=== PATIENT | female | born 1990 | race Caucasian/White ===

== ENCOUNTER 2016-12-15 16:10 | Emergency (ER) | payer MEDICAID, OTHER ==
[~2016-12-15 16:10] MED LIST: ACET65TA OR; AVOID; CIPR500T4 OR; COLA100C2 OR; MILKSUS OR; MIRALEX PO; PERC5TAB8 OR; PERC7.5T8 OR; SENO8.6T5 OR; VICO5TAB; ZOVI5OIN TOP; [UNRECOGNIZED DRUG - OTHER]; [UNRECOGNIZED DRUG - OTHER]
[2016-12-15] MEDS ORDERED: ALBUTEROL 90 MCG/ACT 8GM HFA INHALER As Ordered ONE (17:34)
[2016-12-15] MEDS ORDERED: predniSONE 20 MG TAB As Ordered ONE (17:35)
[2016-12-15] MEDS ORDERED: AZITHROMYCIN 250 MG TAB As Ordered ONE (17:35)
--- NOTE | 2016-12-15 17:53 | EDDOCDS ---
Nurse's Notes [facility] Name: Asmita Santos Age: 26 yrs Sex: Female : 1990 Arrival Date: 12/15/2016 Time: 16:10 Bed PD Private MD: Diagnosis: Acute bronchitis Presentation: 12/15 16:22 Presenting complaint: Patient states: "achy", coughing and sneezing x2 days. Adult ttb Sepsis Screening: The patient does not have new or worsening altered mentation. Patient's respiratory rate is less than 22. Systolic blood pressure is greater than 100. Patient has a qSOFA score of 0- Negative Sepsis Screen. Suicide/Homicide risk assessment- the patient denies having any suicidal and/or homicidal ideations and does not present with any other emotional, behavioral or mental health complaints. Status: Patient is not a director patient financial services or dependent. Transition of care: patient was not received from another setting of care. 16:22 Acuity: NAV Level 4 ttb 16:22 Method Of Arrival: Walkin/Carried/Asstd ttb Triage Assessment: 16:23 General: Appears in no apparent distress, well nourished, well groomed, Behavior is ttb appropriate for age, cooperative, pleasant. Pain: Location: body aches 8/10. HIV screening NA for this visit Offered previously. Neurological: Level of Consciousness is awake, alert. Cardiovascular: Chest pain is denied. Respiratory: Airway is patent Reports cough that is Denies shortness of breath. Derm: Skin is normal. 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 albuterol sulfate 90 mcg/actuation Inhl aepb (Last dose: Unknown) 2. Celexa 10 mg Oral tab 1 tab once daily (Last dose: 12/15/2016 08:00) - PMHx: Asthma; - PSHx: Appendectomy; Cholecystectomy; Tubal ligation; - Social history: Smoking status: Patient uses tobacco products, current every day smoker. Patient uses alcohol occasionally. Patient/guardian denies using street drugs, No barriers to communication noted, The patient speaks fluent Austrian, Speaks appropriately for age. - Family history: Not pertinent. - : The pt / caregiver states he / she is not on anticoagulants. Home medication list is obtained from the patient. - Exposure Risk Screening:: None identified. Screenin:48 Screening information is obtained from the patient. Fall risk: No risks identified. ms18 Assistance ADL's: requires no assistance with activities of daily living. Abuse/DV Screen: The patient / caregiver reports he/she is: not in a situation that causes fear, pain or injury. Nutritional screening: No deficits noted. Advance Directives: There is no living will. home support is adequate. Assessment: 17:48 General: Appears in no apparent distress, comfortable, obese, Behavior is appropriate ms18 for age, cooperative. Pain: Location: chest Pain currently is 4 out of 10 on a pain scale. Neurological: Level of Consciousness is awake, alert, obeys commands, Oriented to person, place, time. Respiratory: Airway is patent Respiratory effort is even, unlabored. Derm: Skin is pink, warm & dry. Vital Signs: 16:11 BP 152 / 88; Pulse 114; Resp 18; Temp 99.2(O); Pulse Ox 99% ; Weight 96.16 kg (M); lr2 Height 5 ft. 4 in. (162.56 cm) (R); Pain 0/10; 17:49 BP 140 / 66; Pulse 92; Resp 18; Temp 99.9(TE); Pulse Ox 98% on R/A; Pain 4/10; ar3 16:11 Body Mass Index 36.39 (96.16 kg, 162.56 cm) lr2 Vitals: 16:11 Log In Time: December 15, 2016 at 16:10. lr2 ED Course: 16:11 Patient visited by Joselyn Narvaez. lr2 16:11 Patient moved to Waiting lr2 16:11 Patient moved to Pre RCE lr2 16:22 Triage Initiated ttb 16:42 Patient moved to Triage 2 ms18 16:49 -Influenza A&B Rapid Antigen - Nose Sent. mlb1 17:06 [facility]adimir Bennett [facility] cc10 17:06 Sami Alanis MD is Attending Physician. cc10 17:20 Patient visited by Bladimir eBnnett PA-C. cc10 17:20 Patient visited by Bladimir Bennett PA-C. cc10 17:32 Patient moved to PD2 / mlb1 17:48 The patient / caregiver is instructed regarding the plan of care and ED course. Patient ms18 has correct armband on for positive identification. Property sent home with patient. :Personal belongings accompany Pt. 17:48 No IV's were initiated during this patient's visit. No procedures done that require ms18 assistance. 17:49 Patient visited by Gayathri Clark PCA. ar3 Administered Medications: 17:38 Drug: Ventolin 2 puffs [Ventolin HFA 90 mcg/actuation aerosol inhaler (2 puffs)] Route: mlb1 Inhalation; 17:38 Drug: predniSONE 40 mg [prednisone 20 mg tablet (2 tabs)] Route: PO; mlb1 17:38 Drug: azithromycin 500 mg [azithromycin 250 mg tablet (2 tabs)] Route: PO; mlb1 Order Results: Lab Order: -Influenza A&B Rapid Antigen - Nose; SPEC'M 12/15/16 16:46 Test: INFLUENZA A RAPID SCR by ICA; Value: INFLUENZA A RESULTS NEGATIVE; Status: F Test: INFLUENZA A RAPID SCR by ICA; Value: Comments:; Status: F Test: INFLUENZA B RAPID SCR by ICA; Value: INFLUENZA B RESULTS NEGATIVE; Status: F Test: INFLUENZA B RAPID SCR by ICA; Value: Comments:; Status: F Test Note: ; The Influenza test is a direct rapid immunoassay for the qualitative detection of Influenza viral antigen. Cell culture (Viral Culture) testing should be considered to confirm NEGATIVE results and to assist in detecting other viruses that can provide similar clinical symptoms. Please contact the lab within 24 hours ([phone]) if confirmatory testing is desired. Outcome: 17:30 Discharge ordered by Provider. cc10 17:48 Discharge Assessment: Patient awake, alert and oriented x 3. No cognitive and/or ms18 functional deficits noted. Patient verbalized understanding of disposition instructions. patient administered narcotics - no. The following High Risk Discharge criteria are identified: None. Discharged to home ambulatory. Condition: good Condition: stable Condition: improved. Discharge instructions given to patient, Instructed on discharge instructions, follow up and referral plans. medication usage, Demonstrated understanding of instructions, medications, Pt was receptive of discharge instructions/ teaching. Prescriptions given X 4. No special radiology studies were completed. 17:51 Patient left the ED. ms18 Signatures: John Cline RN RN mlb1 Gayathri Clark PCA JOURNEYMAN PATTERNMAKER ar3 Alessandra Zhou RN RN ttb Bladimir Bennett, KING PASharmaineC cc10 Carla RichmondRN RN ms18 Joselyn Narvaez lr2 MTDD
--- NOTE | 2016-12-15 17:53 | EDDOCDS ---
Physician Documentation [facility] Name: Asmita Santos Age: 26 yrs Sex: Female : 1990 Arrival Date: 12/15/2016 Time: 16:10 Bed PD Private MD: Disposition: 12/15/16 17:30 Discharged to Home/Self Care. Impression: Acute bronchitis. - Condition is Stable. - Discharge Instructions: Acute Bronchitis. - Prescriptions for Zithromax Z- Ari 250 mg Oral Tablet - take 1 tablet by ORAL route as directed for 4 days; 4 tablet. Prednisone 20 mg Oral Tablet - take 2 tablets by ORAL route once daily for 4 days; 8 tablet. benzonatate 200 mg Oral Capsule - take 1 capsule by ORAL route 3 times per day As needed; 30 capsule. Albuterol Sulfate 90 mcg/actuation Inhalation HFA Aerosol Inhaler - inhale 2 puff by INHALATION route every 4 hours As needed; 1 Inhaler. - Medication Reconciliation, Local Pharmacy Hours form. - Follow up: Private Physician; When: Call to arrange an appointment; Reason: Recheck today's complaints, Continuance of care. - Problem is new. - Symptoms have improved. Historical: - Allergies: PENICILLINS; - Home Meds: 1. albuterol sulfate 90 mcg/actuation Inhl aepb (Last dose: Unknown) 2. Celexa 10 mg Oral tab 1 tab once daily (Last dose: 12/15/2016 08:00) - PMHx: Asthma; - PSHx: Appendectomy; Cholecystectomy; Tubal ligation; - Social history: Smoking status: Patient uses tobacco products, current every day smoker. Patient uses alcohol occasionally. Patient/guardian denies using street drugs, No barriers to communication noted, The patient speaks fluent Portuguese, Speaks appropriately for age. - Family history: Not pertinent. - : The pt / caregiver states he / she is not on anticoagulants. Home medication list is obtained from the patient. - Exposure Risk Screening:: None identified. 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 4 in. (162.56 cm) (R); Pain 0/10; 17:49 BP 140 / 66; Pulse 92; Resp 18; Temp 99.9(TE); Pulse Ox 98% on R/A; Pain 4/10; ar3 16:11 Body Mass Index 36.39 (96.16 kg, 162.56 cm) lr2 MDM: 16:25 Obtain sample by nasopharyngeal swab ordered. ke 16:26 -Influenza A&B Rapid Antigen - Nose Ordered. EDMS 17:29 Call Respiratory ordered. cc10 17:29 MDI teaching with Spacer ordered. cc10 17:29 Ventolin Inhaler 2 puffs Inhalation once ordered. cc10 17:29 predniSONE 40 mg PO once; administer with food or milk ordered. cc10 17:29 azithromycin 500 mg PO once ordered. cc10 17:31 Call Respiratory complete. ttb Administered Medications: 17:38 Drug: Ventolin 2 puffs [Ventolin HFA 90 mcg/actuation aerosol inhaler (2 puffs)] Route: mlb1 Inhalation; 17:38 Drug: predniSONE 40 mg [prednisone 20 mg tablet (2 tabs)] Route: PO; mlb1 17:38 Drug: azithromycin 500 mg [azithromycin 250 mg tablet (2 tabs)] Route: PO; mlb1 Signatures: Dispatcher [employer] EDMS Fercho Bolivar, ADMISSIONS CLINICIAN ADMISSIONS CLINICIAN Alessandra Chavarria RN RN Bladimir De La O, PA-C PA-C ccCarla Hamilton RN RN ms18 John Cline RN mlb1 MTDD
--- NOTE | 2016-12-17 18:53 | EDDOCDS ---
Nurse's Notes [facility] Name: Asmita Santos Age: 26 yrs Sex: Female : 1990 Arrival Date: 12/15/2016 Time: 16:10 Bed PD Private MD: Diagnosis: Acute bronchitis Presentation: 12/15 16:22 Presenting complaint: Patient states: "achy", coughing and sneezing x2 days. Adult ttb Sepsis Screening: The patient does not have new or worsening altered mentation. Patient's respiratory rate is less than 22. Systolic blood pressure is greater than 100. Patient has a qSOFA score of 0- Negative Sepsis Screen. Suicide/Homicide risk assessment- the patient denies having any suicidal and/or homicidal ideations and does not present with any other emotional, behavioral or mental health complaints. Status: Patient is not a shop service technician or dependent. Transition of care: patient was not received from another setting of care. 16:22 Acuity: NAV Level 4 ttb 16:22 Method Of Arrival: Walkin/Carried/Asstd ttb Triage Assessment: 16:23 General: Appears in no apparent distress, well nourished, well groomed, Behavior is ttb appropriate for age, cooperative, pleasant. Pain: Location: body aches 8/10. HIV screening NA for this visit Offered previously. Neurological: Level of Consciousness is awake, alert. Cardiovascular: Chest pain is denied. Respiratory: Airway is patent Reports cough that is Denies shortness of breath. Derm: Skin is normal. 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 albuterol sulfate 90 mcg/actuation Inhl aepb (Last dose: Unknown) 2. Celexa 10 mg Oral tab 1 tab once daily (Last dose: 12/15/2016 08:00) - PMHx: Asthma; - PSHx: Appendectomy; Cholecystectomy; Tubal ligation; - Social history: Smoking status: Patient uses tobacco products, current every day smoker. Patient uses alcohol occasionally. Patient/guardian denies using street drugs, No barriers to communication noted, The patient speaks fluent Cuban, Speaks appropriately for age. - Family history: Not pertinent. - : The pt / caregiver states he / she is not on anticoagulants. Home medication list is obtained from the patient. - Exposure Risk Screening:: None identified. Screenin:48 Screening information is obtained from the patient. Fall risk: No risks identified. ms18 Assistance ADL's: requires no assistance with activities of daily living. Abuse/DV Screen: The patient / caregiver reports he/she is: not in a situation that causes fear, pain or injury. Nutritional screening: No deficits noted. Advance Directives: There is no living will. home support is adequate. Assessment: 17:48 General: Appears in no apparent distress, comfortable, obese, Behavior is appropriate ms18 for age, cooperative. Pain: Location: chest Pain currently is 4 out of 10 on a pain scale. Neurological: Level of Consciousness is awake, alert, obeys commands, Oriented to person, place, time. Respiratory: Airway is patent Respiratory effort is even, unlabored. Derm: Skin is pink, warm & dry. Vital Signs: 16:11 BP 152 / 88; Pulse 114; Resp 18; Temp 99.2(O); Pulse Ox 99% ; Weight 96.16 kg (M); lr2 Height 5 ft. 4 in. (162.56 cm) (R); Pain 0/10; 17:49 BP 140 / 66; Pulse 92; Resp 18; Temp 99.9(TE); Pulse Ox 98% on R/A; Pain 4/10; ar3 16:11 Body Mass Index 36.39 (96.16 kg, 162.56 cm) lr2 Vitals: 16:11 Log In Time: December 15, 2016 at 16:10. lr2 ED Course: 16:11 Patient visited by Joselyn Narvaez. lr2 16:11 Patient moved to Waiting lr2 16:11 Patient moved to Pre RCE lr2 16:22 Triage Initiated ttb 16:42 Patient moved to Triage 2 ms18 16:49 -Influenza A&B Rapid Antigen - Nose Sent. mlb1 17:06 [facility] cc10 17:06 Sami Alanis MD is Attending Physician. cc10 17:20 Patient visited by Bladimir Bennett PA-C. cc10 17:20 Patient visited by Bladimir Bennett PA-C. cc10 17:32 Patient moved to PD2 / mlb1 17:48 The patient / caregiver is instructed regarding the plan of care and ED course. Patient ms18 has correct armband on for positive identification. Property sent home with patient. :Personal belongings accompany Pt. 17:48 No IV's were initiated during this patient's visit. No procedures done that require ms18 assistance. 17:49 Patient visited by Gayathri Clark PCA. ar3 12/16 10:16 T-Sheet-- Draft Copy was scanned into [employer] and attached to record. gb Administered Medications: 12/15 17:38 Drug: Ventolin 2 puffs [Ventolin HFA 90 mcg/actuation aerosol inhaler (2 puffs)] Route: mlb1 Inhalation; 17:38 Drug: predniSONE 40 mg [prednisone 20 mg tablet (2 tabs)] Route: PO; mlb1 17:38 Drug: azithromycin 500 mg [azithromycin 250 mg tablet (2 tabs)] Route: PO; mlb1 Order Results: Lab Order: -Influenza A&B Rapid Antigen - Nose; SPEC'M 12/15/16 16:46 Test: INFLUENZA A RAPID SCR by ICA; Value: INFLUENZA A RESULTS NEGATIVE; Status: F Test: INFLUENZA A RAPID SCR by ICA; Value: Comments:; Status: F Test: INFLUENZA B RAPID SCR by ICA; Value: INFLUENZA B RESULTS NEGATIVE; Status: F Test: INFLUENZA B RAPID SCR by ICA; Value: Comments:; Status: F Test Note: ; The Influenza test is a direct rapid immunoassay for the qualitative detection of Influenza viral antigen. Cell culture (Viral Culture) testing should be considered to confirm NEGATIVE results and to assist in detecting other viruses that can provide similar clinical symptoms. Please contact the lab within 24 hours ([phone]) if confirmatory testing is desired. Outcome: 17:30 Discharge ordered by Provider. cc10 17:48 Discharge Assessment: Patient awake, alert and oriented x 3. No cognitive and/or ms18 functional deficits noted. Patient verbalized understanding of disposition instructions. patient administered narcotics - no. The following High Risk Discharge criteria are identified: None. Discharged to home ambulatory. Condition: good Condition: stable Condition: improved. Discharge instructions given to patient, Instructed on discharge instructions, follow up and referral plans. medication usage, Demonstrated understanding of instructions, medications, Pt was receptive of discharge instructions/ teaching. Prescriptions given X 4. No special radiology studies were completed. 17:51 Patient left the ED. ms18 Signatures: Barnhardt, Cristy, Reg Reg gb John Cline, RN RN mlb1 Gayathri Clark, ROOFING TECHNICIAN ROOFING TECHNICIAN ar3 Alessandra Zhou, RN RN ttb Bladimir Bennett, PASharmaineC PAKaren cc10 Carla Richmond,OLEG RN ms18 Joselyn Narvaez lr2 Chart Complete MTDD
--- NOTE | 2016-12-17 18:53 | EDDOCDS ---
Physician Documentation [facility] Name: Asmita Santos Age: 26 yrs Sex: Female : 1990 Arrival Date: 12/15/2016 Time: 16:10 Bed PD Private MD: Disposition: 12/15/16 17:30 Discharged to Home/Self Care. Impression: Acute bronchitis. - Condition is Stable. - Discharge Instructions: Acute Bronchitis. - Prescriptions for Zithromax Z- Ari 250 mg Oral Tablet - take 1 tablet by ORAL route as directed for 4 days; 4 tablet. Prednisone 20 mg Oral Tablet - take 2 tablets by ORAL route once daily for 4 days; 8 tablet. benzonatate 200 mg Oral Capsule - take 1 capsule by ORAL route 3 times per day As needed; 30 capsule. Albuterol Sulfate 90 mcg/actuation Inhalation HFA Aerosol Inhaler - inhale 2 puff by INHALATION route every 4 hours As needed; 1 Inhaler. - Medication Reconciliation, Local Pharmacy Hours form. - Follow up: Private Physician; When: Call to arrange an appointment; Reason: Recheck today's complaints, Continuance of care. - Problem is new. - Symptoms have improved. Historical: - Allergies: PENICILLINS; - Home Meds: 1. albuterol sulfate 90 mcg/actuation Inhl aepb (Last dose: Unknown) 2. Celexa 10 mg Oral tab 1 tab once daily (Last dose: 12/15/2016 08:00) - PMHx: Asthma; - PSHx: Appendectomy; Cholecystectomy; Tubal ligation; - Social history: Smoking status: Patient uses tobacco products, current every day smoker. Patient uses alcohol occasionally. Patient/guardian denies using street drugs, No barriers to communication noted, The patient speaks fluent Divehi, Speaks appropriately for age. - Family history: Not pertinent. - : The pt / caregiver states he / she is not on anticoagulants. Home medication list is obtained from the patient. - Exposure Risk Screening:: None identified. 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 4 in. (162.56 cm) (R); Pain 0/10; 17:49 BP 140 / 66; Pulse 92; Resp 18; Temp 99.9(TE); Pulse Ox 98% on R/A; Pain 4/10; ar3 16:11 Body Mass Index 36.39 (96.16 kg, 162.56 cm) lr2 MDM: 16:25 Obtain sample by nasopharyngeal swab ordered. ke 16:26 -Influenza A&B Rapid Antigen - Nose Ordered. EDMS 17:29 Call Respiratory ordered. cc10 17:29 MDI teaching with Spacer ordered. cc10 17:29 Ventolin Inhaler 2 puffs Inhalation once ordered. cc10 17:29 predniSONE 40 mg PO once; administer with food or milk ordered. cc10 17:29 azithromycin 500 mg PO once ordered. cc10 17:31 Call Respiratory complete. ttb 12/16 10:16 T-Sheet-- Draft Copy was scanned into [employer] and attached to record. gb Administered Medications: 12/15 17:38 Drug: Ventolin 2 puffs [Ventolin HFA 90 mcg/actuation aerosol inhaler (2 puffs)] Route: mlb1 Inhalation; 17:38 Drug: predniSONE 40 mg [prednisone 20 mg tablet (2 tabs)] Route: PO; mlb1 17:38 Drug: azithromycin 500 mg [azithromycin 250 mg tablet (2 tabs)] Route: PO; mlb1 Signatures: Dispatcher [employer] EDIL Cristy Cantu, Reg Reg gb Fercho Bolivar, FIRE PROTECTION ENGINEER FIRE PROTECTION ENGINEER Alessandra Chavarria RN RN ttb Bladimir Bennett PASharmaineC PAKaren cc10 Carla Richmond RN RN ms18 John Cline RN mlb1 The chart was reviewed and I authenticate all verbal orders and agree with the evaluation and treatment provided.Attachments: 12/16 10:16 T-Sheet-- Draft Copy gb Chart Complete MTDD
--- NOTE | 2016-12-17 18:53 | EDDOCDS ---
Physician Documentation [facility] Name: Asmita Santos Age: 26 yrs Sex: Female : 1990 Arrival Date: 12/15/2016 Time: 16:10 Bed PD Private MD: Disposition: 12/15/16 17:30 Discharged to Home/Self Care. Impression: Acute bronchitis. - Condition is Stable. - Discharge Instructions: Acute Bronchitis. - Prescriptions for Zithromax Z- Ari 250 mg Oral Tablet - take 1 tablet by ORAL route as directed for 4 days; 4 tablet. Prednisone 20 mg Oral Tablet - take 2 tablets by ORAL route once daily for 4 days; 8 tablet. benzonatate 200 mg Oral Capsule - take 1 capsule by ORAL route 3 times per day As needed; 30 capsule. Albuterol Sulfate 90 mcg/actuation Inhalation HFA Aerosol Inhaler - inhale 2 puff by INHALATION route every 4 hours As needed; 1 Inhaler. - Medication Reconciliation, Local Pharmacy Hours form. - Follow up: Private Physician; When: Call to arrange an appointment; Reason: Recheck today's complaints, Continuance of care. - Problem is new. - Symptoms have improved. Historical: - Allergies: PENICILLINS; - Home Meds: 1. albuterol sulfate 90 mcg/actuation Inhl aepb (Last dose: Unknown) 2. Celexa 10 mg Oral tab 1 tab once daily (Last dose: 12/15/2016 08:00) - PMHx: Asthma; - PSHx: Appendectomy; Cholecystectomy; Tubal ligation; - Social history: Smoking status: Patient uses tobacco products, current every day smoker. Patient uses alcohol occasionally. Patient/guardian denies using street drugs, No barriers to communication noted, The patient speaks fluent Bulgarian, Speaks appropriately for age. - Family history: Not pertinent. - : The pt / caregiver states he / she is not on anticoagulants. Home medication list is obtained from the patient. - Exposure Risk Screening:: None identified. 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 4 in. (162.56 cm) (R); Pain 0/10; 17:49 BP 140 / 66; Pulse 92; Resp 18; Temp 99.9(TE); Pulse Ox 98% on R/A; Pain 4/10; ar3 16:11 Body Mass Index 36.39 (96.16 kg, 162.56 cm) lr2 MDM: 16:25 Obtain sample by nasopharyngeal swab ordered. ke 16:26 -Influenza A&B Rapid Antigen - Nose Ordered. EDMS 17:29 Call Respiratory ordered. cc10 17:29 MDI teaching with Spacer ordered. cc10 17:29 Ventolin Inhaler 2 puffs Inhalation once ordered. cc10 17:29 predniSONE 40 mg PO once; administer with food or milk ordered. cc10 17:29 azithromycin 500 mg PO once ordered. cc10 17:31 Call Respiratory complete. ttb 12/16 10:16 T-Sheet-- Draft Copy was scanned into [employer] and attached to record. gb Administered Medications: 12/15 17:38 Drug: Ventolin 2 puffs [Ventolin HFA 90 mcg/actuation aerosol inhaler (2 puffs)] Route: mlb1 Inhalation; 17:38 Drug: predniSONE 40 mg [prednisone 20 mg tablet (2 tabs)] Route: PO; mlb1 17:38 Drug: azithromycin 500 mg [azithromycin 250 mg tablet (2 tabs)] Route: PO; mlb1 Signatures: Dispatcher [employer] EDNE Cristy Cantu, Reg Reg gb Fercho Bolivar, CANS VACUUM TESTER CANS VACUUM TESTER Alessandra Chavarria RN RN ttb Bladimir Bennett PASharmaineC PAKaren cc10 Carla Richmond RN RN ms18 John Cline RN mlb1 The chart was reviewed and I authenticate all verbal orders and agree with the evaluation and treatment provided.Attachments: 12/16 10:16 T-Sheet-- Draft Copy gb Chart Complete MTDD
== END 2016-12-15 17:51 | disposition home or self-care (01) ==
LOC: M ED 16:10
DX: J02.9 Acute pharyngitis, unspecified (principal); J45.909 Unspecified asthma, uncomplicated; Z79.899 Other long term (current) drug therapy; Z83.6 Family history of other diseases of the respiratory system; Z88.0 Allergy status to penicillin; F17.210 Nicotine dependence, cigarettes, uncomplicated

== ENCOUNTER → 2017-06-03 | Outpatient (REF) | payer OTHER | LOC: M LAB REF 17:25 | PROVIDERS: ATTEND Obstetrics & Gynecology | DX: N87.1 Moderate cervical dysplasia (principal) ==

== ENCOUNTER 2017-10-09 11:37 | Emergency (ER) | payer OTHER ==
[~2017-10-09] VITALS: Ht 160 cm; Wt 95.5 kg
[2017-10-09] MEDS ORDERED: COMBAER6 INH (11:44)
[2017-10-09] MEDS ORDERED: IBUP200C10 PO (11:44)
[2017-10-09] MEDS ORDERED: MORPHINE 4 MG/ML 1ML SYRINGE IV ONE (12:15)
[2017-10-09] MEDS ORDERED: NS 1,000 ML IV ONE (12:15)
[2017-10-09 12:41] LABS: BASO # 0.1 10^3/uL (0.0-0.2); BASO % 0.6 % (0.0-1.0); EOS # 0.2 10^3/uL (0.0-0.50); EOS % 1.8 % (0.0-3.0); IMMATURE GRANULOCYTE % 0.3 % (0-0); LYMPH # 3.4 10^3/uL (1.5-6.5); LYMPH % 29.8 % (24.0-44.0); MEAN CORPUSCULAR HEMOGLOBIN 29.2 pg (27.0-33.0); MEAN CORPUSCULAR HGB CONC 34.1 g/dl (32.0-36.5); MEAN CORPUSCULAR VOLUME 85.8 fl (80.0-96.0); MONO # 0.7 10^3/uL (0.0-0.8); MONO % 5.9 % (0.0-5.0); NEUTROPHILS % 61.6 % (36.0-66.0); PLATELET COUNT, AUTOMATED 301 10^3/uL (150-450); RED CELL DISTRIBUTION WIDTH 12.4 % (11.5-14.5); WHITE BLOOD COUNT 11.4 10^3/uL (4.0-10.0)
[2017-10-09 12:52] LABS: CONTROL LINE UCG INT CTR LINE PRESENT
[2017-10-09 13:10] LABS: ALBUMIN 4.2 GM/DL (3.2-5.2); ALBUMIN/GLOBULIN RATIO 1.11 (1.00-1.93); ALKALINE PHOSPHATASE 96 U/L (45-117); ALT/SGPT 31 U/L (12-78); ANION GAP 7 MEQ/L (8-16); AST/SGOT 14 U/L (7-37); BILIRUBIN,TOTAL 0.2 MG/DL (0.2-1.0); BLOOD UREA NITROGEN 11 MG/DL (7-18); CALCIUM LEVEL 8.7 MG/DL (8.5-10.1); CARBON DIOXIDE LEVEL 26 MEQ/L (21-32); CHLORIDE LEVEL 108 MEQ/L (98-107); CREATININE FOR GFR 0.66 MG/DL (0.55-1.02); GLOMERULAR FILTRATION RATE > 60.0 (>60); GLUCOSE, FASTING 83 MG/DL (70-105); POTASSIUM SERUM 4.2 MEQ/L (3.5-5.1); SODIUM LEVEL 141 MEQ/L (136-145)
[2017-10-09] MEDS ORDERED: CIPR-249 PO (13:33)
[2017-10-09 13:45] VITALS: BP 118/67
[2017-10-11] MEDS ORDERED: CIPR-249 PO (17:14)
[2017-10-12] MEDS ORDERED: OXYC1TAB23 PO (13:57)
[2017-10-12] MEDS ORDERED: BACT800T5 PO (13:57)
== END 2017-10-09 13:46 | disposition home or self-care (01) ==
LOC: M ED 11:37
DX: N10 Acute pyelonephritis (principal); J45.909 Unspecified asthma, uncomplicated; F32.9 Major depressive disorder, single episode, unspecified; F17.200 Nicotine dependence, unspecified, uncomplicated; Z88.0 Allergy status to penicillin

== ENCOUNTER 2017-10-11 15:18 | Observation (INO) | payer OTHER ==
[2017-10-11] MEDS: NS 1,000 ML IV ×2 (16:30→16:45)
[2017-10-11] MEDS: ONDANSETRON 4MG/2ML VIAL (J2405) IV (16:30)
[2017-10-11] MEDS: CEFTRIAXONE SOD 1 GM in APPROPRIATE DILUENT 1 EA IV (16:30)
[2017-10-11] MEDS: MORPHINE 4 MG/ML 1ML SYRINGE IV (16:40)
[2017-10-11 16:49] LABS: BASO # 0.1 10^3/uL (0.0-0.2); BASO % 0.3 % (0.0-1.0); EOS # 0.1 10^3/uL (0.0-0.50); EOS % 0.8 % (0.0-3.0); IMMATURE GRANULOCYTE # 0.1 10^3/uL (0-0); IMMATURE GRANULOCYTE % 0.4 % (0-0); LYMPH # 2.9 10^3/uL (1.5-6.5); LYMPH % 15.6 % (24.0-44.0); MEAN CORPUSCULAR HEMOGLOBIN 29.4 pg (27.0-33.0); MEAN CORPUSCULAR HGB CONC 33.8 g/dl (32.0-36.5); MEAN CORPUSCULAR VOLUME 86.8 fl (80.0-96.0); MONO # 1.7 10^3/uL (0.0-0.8); MONO % 8.9 % (0.0-5.0); NEUTROPHILS # 13.8 10^3/uL (1.8-7.7); PLATELET COUNT, AUTOMATED 294 10^3/uL (150-450); RED CELL DISTRIBUTION WIDTH 12.6 % (11.5-14.5); WHITE BLOOD COUNT 18.7 10^3/uL (4.0-10.0)
[2017-10-11 17:14] LABS: LACTIC ACID SEPSIS PROTOCOL 0.7 MMOL/L (0.4-2.0)
[2017-10-11 17:15] LABS: ALBUMIN 4.2 GM/DL (3.2-5.2); ALKALINE PHOSPHATASE 104 U/L (45-117); ALT/SGPT 34 U/L (12-78); AMYLASE 27 U/L (25-115); ANION GAP 9 MEQ/L (8-16); AST/SGOT 16 U/L (7-37); BILIRUBIN,DIRECT 0.1 MG/DL (0.0-0.2); BILIRUBIN,TOTAL 0.4 MG/DL (0.2-1.0); BLOOD UREA NITROGEN 14 MG/DL (7-18); CALCIUM LEVEL 8.9 MG/DL (8.5-10.1); CARBON DIOXIDE LEVEL 22 MEQ/L (21-32); CHLORIDE LEVEL 108 MEQ/L (98-107); CREATININE FOR GFR 0.76 MG/DL (0.55-1.02); GLOMERULAR FILTRATION RATE > 60.0 (>60); GLUCOSE, FASTING 92 MG/DL (70-105); SODIUM LEVEL 139 MEQ/L (136-145); TOTAL PROTEIN 8.4 GM/DL (6.4-8.2)
[2017-10-11 17:57] LABS: KETONE, URINE AUTO RFX NEGATIVE (NEGATIVE); MUCUS, URINE RFX SMALL (NEGATIVE); NITRITE, URINE AUTO RFX NEGATIVE (NEGATIVE); RBC, URINE AUTO RFX 5 /HPF (0-3); SPECIFIC GRAVITY UR AUTO RFX 1.023 (1.002-1.035); SQUAM EPITHELIAL CELL UR AURFX 4 /HPF (0-6)
[2017-10-11 17:58] LABS: LEUKOCYTE ESTERASE UR AUTO RFX TRACE (NEGATIVE); WBC, URINE AUTO RFX 12 /HPF (0-3)
[2017-10-11] MEDS ORDERED: ONDANSETRON 4MG/2ML VIAL (J2405) IV (18:30)
[2017-10-11] MEDS: KETOROLAC 30 MG/ML VIAL (J1885) IV (19:08)
[2017-10-11] MEDS: ACETAMINOPHEN 500 MG TAB PO (23:08)
[2017-10-12] MEDS: KETOROLAC 30 MG/ML VIAL (J1885) IV ×3 (03:01→20:28)
[2017-10-12 06:32] LABS: BASO # 0.1 10^3/uL (0.0-0.2); BASO % 0.4 % (0.0-1.0); EOS # 0.2 10^3/uL (0.0-0.50); EOS % 1.6 % (0.0-3.0); IMMATURE GRANULOCYTE # 0.1 10^3/uL (0-0); IMMATURE GRANULOCYTE % 0.4 % (0-0); LYMPH # 3.2 10^3/uL (1.5-6.5); LYMPH % 22.7 % (24.0-44.0); MEAN CORPUSCULAR HEMOGLOBIN 29.4 pg (27.0-33.0); MEAN CORPUSCULAR HGB CONC 33.4 g/dl (32.0-36.5); MEAN CORPUSCULAR VOLUME 88.1 fl (80.0-96.0); MONO # 1.6 10^3/uL (0.0-0.8); MONO % 11.4 % (0.0-5.0); NEUTROPHILS # 8.9 10^3/uL (1.8-7.7); NEUTROPHILS % 63.5 % (36.0-66.0); PLATELET COUNT, AUTOMATED 221 10^3/uL (150-450); RED CELL DISTRIBUTION WIDTH 12.6 % (11.5-14.5); WHITE BLOOD COUNT 14.1 10^3/uL (4.0-10.0)
[2017-10-12 06:55] LABS: ANION GAP 6 MEQ/L (8-16); BLOOD UREA NITROGEN 14 MG/DL (7-18); CARBON DIOXIDE LEVEL 23 MEQ/L (21-32); CHLORIDE LEVEL 114 MEQ/L (98-107); CREATININE FOR GFR 0.55 MG/DL (0.55-1.02); GLOMERULAR FILTRATION RATE > 60.0 (>60); GLUCOSE, FASTING 90 MG/DL (70-105); POTASSIUM SERUM 3.9 MEQ/L (3.5-5.1); SODIUM LEVEL 143 MEQ/L (136-145)
[2017-10-12] MEDS: PERCOCET 5MG/325MG TAB PO ×3 (07:58→23:36)
[2017-10-12] MEDS: ENOXAPARIN 40 MG/0.4 ML SYRINGE (J1650) SC (07:59)
[2017-10-12] MEDS: INFLUENZA QUADRIVALENT PF VACCINE 0.5ML SYRINGE (90686) IM (08:00)
[2017-10-12] MEDS: NS 1,000 ML IV (08:01)
[2017-10-12] MEDS: CEFTRIAXONE SOD 1 GM in APPROPRIATE DILUENT 1 EA IV (15:27)
[2017-10-13] MEDS ORDERED: OXYCODONE/APAP 5MG/325MG(BULK FOR ED) 1 TABLET PO
[2017-10-13] MEDS: PERCOCET 5MG/325MG TAB PO ×3 (03:22→12:22)
[2017-10-13] MEDS: KETOROLAC 30 MG/ML VIAL (J1885) IV ×2 (05:35→12:56)
[2017-10-13 06:54] LABS: BASO # 0.1 10^3/uL (0.0-0.2); BASO % 0.6 % (0.0-1.0); EOS # 0.2 10^3/uL (0.0-0.50); EOS % 1.7 % (0.0-3.0); IMMATURE GRANULOCYTE # 0.1 10^3/uL (0-0); IMMATURE GRANULOCYTE % 0.6 % (0-0); LYMPH # 2.5 10^3/uL (1.5-6.5); LYMPH % 26.1 % (24.0-44.0); MEAN CORPUSCULAR HEMOGLOBIN 29.7 pg (27.0-33.0); MEAN CORPUSCULAR HGB CONC 33.8 g/dl (32.0-36.5); MEAN CORPUSCULAR VOLUME 87.8 fl (80.0-96.0); MONO # 0.9 10^3/uL (0.0-0.8); MONO % 9.8 % (0.0-5.0); NEUTROPHILS # 5.9 10^3/uL (1.8-7.7); NEUTROPHILS % 61.2 % (36.0-66.0); PLATELET COUNT, AUTOMATED 198 10^3/uL (150-450); RED CELL DISTRIBUTION WIDTH 12.5 % (11.5-14.5); WHITE BLOOD COUNT 9.6 10^3/uL (4.0-10.0)
[2017-10-13 07:12] LABS: ANION GAP 8 MEQ/L (8-16); BLOOD UREA NITROGEN 10 MG/DL (7-18); CALCIUM LEVEL 7.9 MG/DL (8.5-10.1); CARBON DIOXIDE LEVEL 22 MEQ/L (21-32); CHLORIDE LEVEL 112 MEQ/L (98-107); CREATININE FOR GFR 0.53 MG/DL (0.55-1.02); GLOMERULAR FILTRATION RATE > 60.0 (>60); GLUCOSE, FASTING 83 MG/DL (70-105); POTASSIUM SERUM 3.8 MEQ/L (3.5-5.1); SODIUM LEVEL 142 MEQ/L (136-145)
[2017-10-13] MEDS: ENOXAPARIN 40 MG/0.4 ML SYRINGE (J1650) SC (08:13)
[2017-10-13] MEDS: CEFTRIAXONE SOD 1 GM in APPROPRIATE DILUENT 1 EA IV (12:22)
== END 2017-10-13 13:05 | disposition home or self-care (01) ==
LOC: M ED 15:18 → M ED INP 18:20 → M PED 19:55
DX: N10 Acute pyelonephritis (principal); R50.9 Fever, unspecified; J45.20 Mild intermittent asthma, uncomplicated; F17.210 Nicotine dependence, cigarettes, uncomplicated; Z79.51 Long term (current) use of inhaled steroids; Z79.899 Other long term (current) drug therapy; Z88.0 Allergy status to penicillin; Z23 Encounter for immunization
CPT/HCPCS: 96375

== ENCOUNTER → 2017-12-15 | Outpatient (REF) | payer OTHER | LOC: M LAB REF 13:50 | DX: Z12.4 Encounter for screening for malignant neoplasm of cervix (principal) ==

== ENCOUNTER → 2018-01-13 | Outpatient (REF) | payer OTHER ==
[2018-01-13 11:36] LABS: BASO # 0.1 10^3/uL (0.0-0.2); BASO % 0.6 % (0.0-1.0); EOS # 0.2 10^3/uL (0.0-0.50); EOS % 2.2 % (0.0-3.0); HEMOGLOBIN 13.6 g/dl (12.0-16.0); IMMATURE GRANULOCYTE % 0.4 % (0-3.0); LYMPH # 3.2 10^3/uL (1.5-6.5); LYMPH % 34.1 % (24.0-44.0); MEAN CORPUSCULAR HEMOGLOBIN 28.9 pg (27.0-33.0); MEAN CORPUSCULAR HGB CONC 33.2 g/dl (32.0-36.5); MEAN CORPUSCULAR VOLUME 87.2 fl (80.0-96.0); MONO # 0.6 10^3/uL (0.0-0.8); MONO % 6.4 % (0.0-5.0); NEUTROPHILS # 5.3 10^3/uL (1.8-7.7); NEUTROPHILS % 56.3 % (36.0-66.0); PLATELET COUNT, AUTOMATED 242 10^3/uL (150-450); RED CELL DISTRIBUTION WIDTH 13.4 % (11.5-14.5); WHITE BLOOD COUNT 9.4 10^3/uL (4.0-10.0)
[2018-01-13 12:11] LABS: FOLATE 4.6 NG/ML (>5.4); TOTAL 25(OH) VITAMIN D 25.5 NG/ML (30.0-100.0); VITAMIN B12 LEVEL 371 PG/ML (247-911)
[2018-01-13 12:12] LABS: ALBUMIN 3.9 GM/DL (3.2-5.2); ALBUMIN/GLOBULIN RATIO 1.05 (1.00-1.93); ALKALINE PHOSPHATASE 85 U/L (45-117); ALT/SGPT 55 U/L (12-78); ANION GAP 9 MEQ/L (8-16); AST/SGOT 30 U/L (7-37); BILIRUBIN,TOTAL 0.5 MG/DL (0.2-1.0); BLOOD UREA NITROGEN 10 MG/DL (7-18); CALCIUM LEVEL 8.8 MG/DL (8.5-10.1); CARBON DIOXIDE LEVEL 23 MEQ/L (21-32); CHLORIDE LEVEL 106 MEQ/L (98-107); CREATININE FOR GFR 0.71 MG/DL (0.55-1.30); FERRITIN 90 NG/ML (8-252); GLOMERULAR FILTRATION RATE > 60.0 (>60); GLUCOSE, FASTING 73 MG/DL (70-100); IRON (FE) 80 UG/DL (50-170); POTASSIUM SERUM 4.4 MEQ/L (3.5-5.1); SODIUM LEVEL 138 MEQ/L (136-145); TOTAL PROTEIN 7.6 GM/DL (6.4-8.2)
== END ==
LOC: M LABDRAW1 10:01
DX: Z13.9 Encounter for screening, unspecified (principal)
CPT/HCPCS: 82746

== ENCOUNTER → 2018-07-23 | Outpatient (REF) | payer OTHER | LOC: M LAB REF 12:25 | DX: R30.0 Dysuria (principal) ==

== ENCOUNTER 2019-11-09 19:43 | Inpatient (IN) | payer OTHER ==
[~2019-11-09] VITALS: Ht 165.1 cm; Wt 92.8 kg
[~2019-11-09 19:43] MED LIST changes: -IBUP-1730 PO; -PROAAER10 INH
[2019-11-09] MEDS ORDERED: NS 2,780 ML in IV 1 EA IV ONE (20:15)
[2019-11-09 20:45] LABS: BASO # 0.1 10^3/uL (0.0-0.2); BASO % 0.4 % (0.0-1.0); EOS # 0.1 10^3/uL (0.0-0.5); EOS % 0.4 % (0.0-3.0); HEMATOCRIT 39.5 % (36.0-47.0); HEMOGLOBIN 13.2 g/dl (12.0-15.5); LYMPH # 2.4 10^3/uL (1.5-5.0); LYMPH % 12.5 % (24.0-44.0); MEAN CORPUSCULAR HEMOGLOBIN 30.1 pg (27.0-33.0); MEAN CORPUSCULAR HGB CONC 33.4 g/dl (32.0-36.5); MONO # 1.7 10^3/uL (0.0-0.8); MONO % 8.9 % (0.0-5.0); NEUTROPHILS # 14.7 10^3/uL (1.5-8.5); NEUTROPHILS % 77.2 % (36.0-66.0); PLATELET COUNT, AUTOMATED 232 10^3/uL (150-450); RED BLOOD COUNT 4.39 10^6/uL (4.00-5.40)
[2019-11-09 21:07] LABS: ALBUMIN 3.9 GM/DL (3.2-5.2); ALT/SGPT 39 U/L (12-78); BILIRUBIN,DIRECT 0.2 MG/DL (0.0-0.2); BILIRUBIN,TOTAL 0.6 MG/DL (0.2-1.0); BLOOD UREA NITROGEN 13 MG/DL (7-18); CALCIUM LEVEL 8.6 MG/DL (8.5-10.1); CARBON DIOXIDE LEVEL 20 MEQ/L (21-32); CHLORIDE LEVEL 110 MEQ/L (98-107); CREATININE FOR GFR 0.73 MG/DL (0.55-1.30); GLOMERULAR FILTRATION RATE > 60.0 (>60); GLUCOSE, FASTING 93 MG/DL (70-100); LIPASE 88 U/L (73-393); POTASSIUM SERUM 3.6 MEQ/L (3.5-5.1); SODIUM LEVEL 138 MEQ/L (136-145); TOTAL PROTEIN 7.3 GM/DL (6.4-8.2)
[2019-11-09 21:57] LABS: INFLUENZA A AMPLIFICATION NEGATIVE (NEGATIVE); INFLUENZA B AMPLIFICATION NEGATIVE (NEGATIVE)
[2019-11-09] MEDS ORDERED: ISOVUE-370 76% 100ML VIAL (Q9967) As Ordered ONE (22:22)
--- NOTE | 2019-11-09 23:22 | REPVR ---
PROCEDURE INFORMATION: Exam: CT Abdomen and Pelvis With Contrast Exam date and time: 11/09/19 (10:34pm) Age: 29 years old Clinical indication: Abdominal pain. Bilateral flank pain, fever, leukocytosis. Possible pyelonephritis. TECHNIQUE: Imaging protocol: Computed tomography of the abdomen and pelvis with intravenous contrast. Radiation optimization: All CT scans at this facility use at least one of these dose optimization techniques: automated exposure control; mA and/or kV adjustment per patient size (includes targeted exams where dose is matched to clinical indication); or iterative reconstruction. Contrast material: Isovue 370 Contrast volume: 100 ml Contrast route: IV COMPARISON: CT ABDOMEN PELVIS of 10/11/17 FINDINGS: Liver: No solid mass. Probable small cyst anteriorly near the hepatic dome. Gallbladder and bile ducts: Previous cholecystectomy. No ductal dilatation. Pancreas: Normal. No ductal dilatation. Spleen: Splenomegaly. Adrenals: Normal. No mass. Kidneys and ureters: No hydronephrosis. Parenchymal hypodensity (area of diminished perfusion) medially at the left upper renal pole. Perinephric stranding, adjacent to the left upper renal pole. No obstructing urinary tract stones. Stomach and bowel: Unremarkable. No bowel obstruction. No mucosal thickening. Appendix: No evidence of appendicitis. Intraperitoneal space: Unremarkable. No free air. No significant fluid collection. Vasculature: Unremarkable. No abdominal aortic aneurysm. Lymph nodes: Unremarkable. No enlarged lymph nodes. Bladder: Mildly distended urinary bladder. No stones nor mass. Reproductive: Probable S/P bilateral tubal occlusive therapy. Bones/joints: Unremarkable. No acute fracture. Soft tissues: Unremarkable. IMPRESSION: Parenchymal hypodensity (area of diminished perfusion) medially at the left upper renal pole. Perinephric stranding, adjacent to the left upper renal pole. No hydronephrosis. Most likely acute focal nephritis (acute lobar nephronia), at the left upper renal pole. No obstructing urinary tract stones. Clinical and urinalysis correlation are suggested. Previous cholecystectomy. Splenomegaly. No acute bowel pathology. Electronically signed by: Nancy Aj On 11/09/2019 23:22:09 PM
[2019-11-10] MEDS ORDERED: cefTRIAXone SOD 1 GM in D5W MINI-BAG PLUS 50 ML IV ONE (00:15)
--- NOTE | 2019-11-10 00:17 | REPVR ---
PROCEDURE INFORMATION: Exam: XR Chest, 2 Views Exam date and time: 11/09/2019 9:28 PM Age: 29 years old Clinical indication: Pain; Other: Abdominal; Additional info: Abdominal pain TECHNIQUE: Imaging protocol: XR of the chest Views: 2 views. COMPARISON: No relevant prior studies available. FINDINGS: Lungs: Unremarkable. No consolidation. Pleural space: Unremarkable. No pleural effusion. No pneumothorax. Heart/Mediastinum: Unremarkable. No cardiomegaly. Bones/joints: Unremarkable. IMPRESSION: Negative chest. Electronically signed by: Lalo Corley On 11/10/2019 00:16:56 AM
[2019-11-10] MEDS ORDERED: MORPHINE 4 MG/ML 1ML VIAL/SYRINGE (J2270) IV ONE (00:30)
[2019-11-10] MEDS ORDERED: ONDANSETRON 4MG/2ML VIAL (J2405) IV ONE (00:30)
[2019-11-10] MEDS ORDERED: PROAAER10 INH (00:54)
[2019-11-10] MEDS ORDERED: IBUP-1730 PO (00:54)
[2019-11-10] MEDS ORDERED: ONDANSETRON 4MG/2ML VIAL (J2405) IV PRN (02:45)
[2019-11-10] MEDS: MORPHINE 4 MG/ML 1ML VIAL/SYRINGE (J2270) IV PRN ×4 (03:30→17:10)
[2019-11-10 04:53] VITALS: BP 114/56
[2019-11-10] MEDS: HEPARIN SOD (PORCINE) 5000 UNITS/ML VIAL (J1644 PER 1000UNITS) SC SCH ×3 (05:33→21:13)
[2019-11-10] MEDS: ACETAMINOPHEN TAB 650MG DOSE (2X325MG) PO PRN ×4 (05:34→19:23)
--- NOTE | 2019-11-10 07:23 | HPEPDOC ---
General Date of Admission Nov 10, 2019 at 01:53 Date of Service: Nov 10, 2019 Attending Physician: RICO HUNTER MD Chief Complaint The patient is a 29-year-old female admitted with a reason for visit of Acute Focal Nephritis;Bilat Flank Pain;Fever;. Source: Patient Exam Limitations: No limitations Timing/Duration: 24 hours Associated Symptoms: Other (back and L>R flank pain) History of Present Illness 29 yo woman with a history of gallstones s/p cholecystectomy, s/p remote appendectomy, unclear history of severe pyelonephritis 8y ago? ("severe kidney infection" after her third child), GERD who presented with a <24h history of bilateral L>R flank pain, fever to 102 at urgent care, chills, sweats. She initially presented to urgent care that sent her to the ED. In the ED was hemodynamically stable with a temp of 100.7 and tachycardic to 140 breathing comfortably on room air. On assessment she looked flushed and was in moderate discomfort from L flank pain and LLQ pain without acute abdomen on exam. While in the ED work up was notable for CT A/P that showed a parenchymal hypodensity (area of diminished perfusion) medially at the left upper renal pole, perinephric stranding, adjacent to the left upper renal pole without evidence of obstructing urinary tract stones, while her WBC was 19, Hgb 13,2, Hct 39.5, Cr 0.73, UA was suprisingly bland, CXR unremarkable, lactate 1.3. She was started on empiric ceftriaxone and admitted to medicine with concern for pyelonephritis vs. possible segmental infarct? still under investigation. Home Medications Scheduled PRN Albuterol Sulfate (Proair Hfa) 8.5 Gm Hfa.aer.ad, 2 PUFF INH QID PRN for SHORTNESS OF BREATH, (Reported) Ibuprofen (Ibuprofen) 200 Mg Tablet, 800 MG PO TID PRN for PAIN, (Reported) Allergies Coded Allergies: Penicillins (Verified Allergy, Intermediate, RASH/HIVES, 11/09/19) Past Medical History Medical History history of gallstones s/p cholecystectomy, s/p remote appendectomy, unclear history of severe pyelonephritis 8y ago? ("severe kidney infection" after her third child), GERD Surgical History Appy, ruth ann, contraceptive coils in fallopian tubes Family History Significant Family History: No pertinent family hx Social History * Smoker: Denies Alcohol: Denies Drugs: denies Psychosocial History: No pertinent psych hx A-FIB/CHADSVASC A-FIB History Current/History of A-Fib/PAF?: No Current PO Anticoag Therapy: No Age/Risk Factor Scoring CHADSVASC: CHADSVASC Response (Comments) Value Age Risk Factor Age < 65 years old 0 Gender Risk Factor Female 1 Hx of CHF No 0 Hx of HTN No 0 Hx of Stroke/TIA/or VTE No 0 Hx of Diabetes No 0 Hx of Vascular Disease No 0 Total 1 Treatment Treatment ordered: NONE Reason Anticoagulant not given: Not indicated/[id number] Review of Systems Constitutional: Reports: Chills, Fever; Denies: Night Sweats, Weight Loss Eyes: Denies: Pain, Vision change ENT: Denies: Head Aches, Ear Pain, Dysphagia Skin: Denies: Rash, Lesions, Breakdown Pulmonary: Denies: Dyspnea, Cough Cardiovascular: Denies: Chest Pain, Palpitations, Orthopnea, Paroxysmal Noc. Dyspnea, Lt Headedness Gastrointestinal: Reports: Abdominal Pain; Denies: Nausea, Vomiting, Diarrhea Genitourinary: Reports: Other Symptoms (L>R flank pain); Denies: Dysuria, Frequency, Incontinence, Hematuria, Retention Hematologic: Denies: Bruising, Bleeding Excessively Endocrine: Denies: Polydipsia, Polyphagia, Polyuria, Heat Intolerance, Cold Intolerance, Other Endocrine Sx Musculoskeletal: Reports: Back Pain (L>R flank pain) Neurological: Denies: Weakness, Numbness, Change in speech, Confusion Psych: Reports: Mood Normal; Denies: Depression, Memory Issues Physical Examination General Exam: Positive: Alert, Mild Distress Eye Exam: Positive: PERRLA, Conjunctiva & lids normal, EOMI; Negative: Sclera icteric ENT Exam: Positive: Atraumatic, Mucous membr. moist/pink, Pharynx Normal Neck Exam: Positive: Supple; Negative: JVD, thyromegaly Chest Exam: Positive: Clear to auscultation, Normal air movement Heart Exam: Positive: Rate Normal, Regular Rhythm, Normal S1, Normal S2; Negative: Murmurs, Rubs Telemetry: Positive: Tachycardia Abdomen Exam: Positive: Normal bowel sounds, Soft, Tenderness (LLQ tenderness, wrapping to L flank pain); Negative: Hepatospenomegaly Extremity Exam: Positive: Normal pulses; Negative: Clubbing, Cyanosis, Edema Skin Exam: Positive: Nl turgor and temperature; Negative: Breakdown, Lesion Neuro Exam: Positive: Normal Gait, Normal Speech, Cranial Nerves 3-12 NL, Reflexes 2+ Psych Exam: Positive: Mental status NL, Mood NL, Oriented x 3 Vital Signs Vital Signs Date Time Temp Pulse Resp B/P (MAP) Pulse Ox O2 Delivery O2 Flow Rate FiO2 11/10/19 04:53 98.8 103 18 114/56 (75) 98 Room Air Laboratory Data Labs 24H Laboratory Tests 2 11/09/19 20:07: Lactic Acid Level 1.3 11/09/19 20:16: Urine Color STRAW, Urine Appearance CLEAR, Urine pH 6.0, Urine Specific [place] 1.051, Urine Protein NEGATIVE, Urine Glucose (UA) NEGATIVE, Urine Ketones NEGATIVE, Urine Blood NEGATIVE, Urine Nitrite NEGATIVE, Urine Bilirubin NEGATIVE, Urine Urobilinogen 0.2, Urine Leukocyte Esterase NEGATIVE, Urine WBC (Auto) 1, Urine RBC (Auto) 1, Urine Hyaline Casts (Auto) 0, Urine Bacteria (Auto) NEGATIVE, Urine Squamous Epithelial Cells 0, Urine Sperm (Auto) 11/09/19 20:30: Immature Granulocyte % (Auto) 0.6, Neutrophils (%) (Auto) 77.2H, Lymphocytes (%) (Auto) 12.5L, Monocytes (%) (Auto) 8.9H, Eosinophils (%) (Auto) 0.4, Basophils (%) (Auto) 0.4, Neutrophils # (Auto) 14.7H, Lymphocytes # (Auto) 2.4, Monocytes # (Auto) 1.7H, Eosinophils # (Auto) 0.1, Basophils # (Auto) 0.1, Nucleated Red Blood Cells % (auto) 0.0, Anion Gap 8, Glomerular Filtration Rate > 60.0, Calcium Level 8.6, Total Bilirubin 0.6, Direct Bilirubin 0.2, Aspartate Amino Transf (AST/SGOT) 21, Alanine Aminotransferase (ALT/SGPT) 39, Alkaline Phosphatase 87, Total Protein 7.3, Albumin 3.9, Albumin/Globulin Ratio 1.15, Lipase 88 11/09/19 20:38: POC Glucose (Misc Panel) 99, POC Sodium (Misc Panel) 139, POC Potassium (Misc Panel) 3.5, POC Chloride (Misc Panel) 106, POC Total CO2 (Misc Panel) 19.0L, POC Blood Urea Nitrogen (Misc Panel 12, POC Ionized Calcium (Misc Panel) 4.6, POC Creatinine (Misc Panel) 0.7, POC Hematocrit (Misc Panel) 39.0 11/09/19 20:50: POC Beta HCG, Quantitative < 5.0 11/09/19 21:10: Influenza Type A (RT-PCR) NEGATIVE, Influenza Type B (RT-PCR) NEGATIVE, Respiratory Syncytial Virus (RT-PCR NEGATIVE CBC/BMP Laboratory Tests 11/09/19 20:30 Microbiology Microbiology 11/09/19 Respiratory Virus Panel (PCR) ([facility]) - Final, Complete Assessment/Plan 29 yo woman with a history of remote pyelonephritis, GERD, s/p ruth ann and appy who presented with acute L flank pain and found to have parenchymal hypodensity of diminished perfusion medially at the left upper renal pole with perinephric stranding without evidence of obstructing urinary tract stonesand leukocytosis, fever, tachycardia concerning for sepsis 2/2 pyelonephritis. Pyelonephritis: Has parenchymal hypodensity with diminished perfusion at the left upper renal pole with perinephric stranding without evidence of obstructing urinary tract stones, leukocytosis, leukocytosis, fever, tachycardia -Resend UA after story of initial sample having been lost on the way to the lab, with 2nd UA bland -Urine culture -continue empiric ceftriaxone -Review imaging with radiology about the segmental hypoperfusion that could suggest a segmental infarct? however with no active sediment on UA and normal Cr -s/p sepsis protocol fluids ~3L -morphine 4Q4 PRN IV for flank pain and zofran PRN DVT ppx: heparin [id number] Diet: advance as tolerated to regular diet, on zofran IV PRN for nausea Dispo: medsurg Plan / VTE VTE Prophylaxis Ordered?: Yes RICO HUNTER MD Nov 10, 2019 07:23
[2019-11-10] MEDS: cefTRIAXone SOD 1 GM in D5W MINI-BAG PLUS 50 ML IV SCH (08:55)
[2019-11-10] MEDS ORDERED: cefTRIAXone SOD 1 GM VIAL (J0696) IM ONE (09:00)
[2019-11-10 14:00] VITALS: BP 115/57
--- NOTE | 2019-11-10 20:57 | IPNPDOC ---
Text Note Date of Service The patient was seen on 11/10/19. NOTE SUBJECTIVE: This is a 29-year-old female who had onset of fever and severe flank pain. Renal CT shows concern for what is described as acute lobar nephronia to the left upper pole. There is also adjacent perinephric stranding. The patient does not appear to have hydronephrosis. Patient is being empirically treated for pyelonephritis. OBJECTIVE: HEENT: Oral mucosa is moist, she does not have any adenopathy or thyromegaly. Cardiovascular: Regular rate and rhythm with a normal S1 and S2. No appreciable murmur. Abdomen: Soft, mild central obesity, relative to her overall body habitus, patient also has significant bilateral flank pain to palpation and percussion greater on the left than on the right Extremities: Patient does not exhibit any peripheral edema or lesions, pedal pulses are palpable ASSESSMENT/PLAN: Patient is being empirically treated for pyelonephritis with IV antibiotics whil e awaiting culture results. She appears to be defervescing. She is slightly clinically better. We will continue to encourage hydration with both oral and IV fluids. Lab studies are not otherwise consistent with a nephritic urine. VS,Fishbone, I+O VS, Fishbone, I+O Vital Signs Date Time Temp Pulse Resp B/P (MAP) Pulse Ox O2 Delivery O2 Flow Rate FiO2 11/10/19 17:30 18 11/10/19 14:00 97.1 93 115/57 (76) 96 Room Air I&O- Last 24 Hours up to 6 AM 11/10/19 06:00 Intake Total 0 ml Balance 0 ml VA CACERES MD Nov 10, 2019 20:57
[2019-11-10] MEDS: NS 1,000 ML IV SCH (21:00)
[2019-11-10] MEDS: ANEXSIA, NORCO 7.5MG/325MG TABLET(HYDROCODONE/APAP) PO PRN (21:15)
[2019-11-10 22:00] VITALS: BP 108/60
[2019-11-11] MEDS: MORPHINE 4 MG/ML 1ML VIAL/SYRINGE (J2270) IV PRN ×3 (02:46→17:09)
[2019-11-11] MEDS: HEPARIN SOD (PORCINE) 5000 UNITS/ML VIAL (J1644 PER 1000UNITS) SC SCH ×3 (05:30→22:00)
[2019-11-11] MEDS: NS 1,000 ML IV SCH ×2 (05:30→17:00)
[2019-11-11 06:00] VITALS: BP 120/57
[2019-11-11] MEDS: ANEXSIA, NORCO 7.5MG/325MG TABLET(HYDROCODONE/APAP) PO PRN ×3 (07:39→22:18)
[2019-11-11] MEDS: cefTRIAXone SOD 1 GM in D5W MINI-BAG PLUS 50 ML IV SCH (07:42)
[2019-11-11 07:58] LABS: HEMATOCRIT 33.6 % (36.0-47.0); MEAN CORPUSCULAR HEMOGLOBIN 30.1 pg (27.0-33.0); MEAN CORPUSCULAR HGB CONC 33.3 g/dl (32.0-36.5); MEAN CORPUSCULAR VOLUME 90.3 fl (80.0-96.0); PLATELET COUNT, AUTOMATED 187 10^3/uL (150-450); RED BLOOD COUNT 3.72 10^6/uL (4.00-5.40); WHITE BLOOD COUNT 13.4 10^3/uL (4.0-10.0)
[2019-11-11 08:15] LABS: HEMOGLOBIN 11.2 g/dl (12.0-15.5)
[2019-11-11 08:47] LABS: ALT/SGPT 52 U/L (12-78); BILIRUBIN,TOTAL 0.4 MG/DL (0.2-1.0); BLOOD UREA NITROGEN 5 MG/DL (7-18); CALCIUM LEVEL 8.2 MG/DL (8.5-10.1); CARBON DIOXIDE LEVEL 22 MEQ/L (21-32); CHLORIDE LEVEL 109 MEQ/L (98-107); CREATININE FOR GFR 0.61 MG/DL (0.55-1.30); GLOMERULAR FILTRATION RATE > 60.0 (>60); GLUCOSE, FASTING 114 MG/DL (70-100); POTASSIUM SERUM 3.5 MEQ/L (3.5-5.1); SODIUM LEVEL 138 MEQ/L (136-145); TOTAL PROTEIN 6.8 GM/DL (6.4-8.2)
[2019-11-11] MEDS ORDERED: INFLUENZA QUADRIVALENT PF VACCINE 0.5ML SYRINGE (90686) IM ONE (09:00)
[2019-11-11] MEDS: ACETAMINOPHEN TAB 650MG DOSE (2X325MG) PO PRN ×2 (09:58→17:10)
[2019-11-11 13:45] VITALS: BP 128/78
[2019-11-11] MEDS ORDERED: diphenhydrAMINE INJ 50MG/ML VIAL (J1200) IV PRN (18:45)
--- NOTE | 2019-11-11 21:11 | IPNPDOC ---
Text Note Date of Service The patient was seen on 11/11/19. NOTE SUBJECTIVE: This is a 29-year-old female who had onset of fever and severe flank pain. Renal CT shows concern for what is described as acute lobar nephronia to the left upper pole. Patient is being empirically treated for pyelonephritis. She has no fever and her appetite has improved. She still complains of some pain. OBJECTIVE: HEENT: Oral mucosa is moist, she does not have any adenopathy or thyromegaly. Cardiovascular: Regular rate and rhythm with a normal S1 and S2. No appreciable murmur. Abdomen: Soft, mild central obesity, relative to her overall body habitus, decr eased flank pain to palpation, patient reports some pain to pelvis. Extremities: Patient does not exhibit any peripheral edema or lesions, pedal pulses are palpable ASSESSMENT/PLAN: Patient is being empirically treated for pyelonephritis with IV antibiotics. Cultures are negative to date. Could transition to oral antibiotics. VS,Fishbone, I+O VS, Fishbone, I+O Laboratory Tests 11/11/19 07:44 Vital Signs Date Time Temp Pulse Resp B/P (MAP) Pulse Ox O2 Delivery O2 Flow Rate FiO2 11/11/19 17:19 18 11/11/19 13:45 97.3 80 128/78 (95) 96 Room Air I&O- Last 24 Hours up to 6 AM 11/11/19 06:00 Intake Total 3510 ml Output Total 350 ml Balance 3160 ml VA CACERES MD Nov 11, 2019 21:11
[2019-11-12] VITALS: BP 95/45
[2019-11-12] MEDS: MORPHINE 4 MG/ML 1ML VIAL/SYRINGE (J2270) IV PRN (02:33)
[2019-11-12] MEDS ORDERED: IBUPROFEN 600 MG TAB PO PRN (03:30)
[2019-11-12] MEDS: ANEXSIA, NORCO 7.5MG/325MG TABLET(HYDROCODONE/APAP) PO PRN ×2 (04:21→10:42)
[2019-11-12 04:27] VITALS: BP 106/54
[2019-11-12] MEDS: HEPARIN SOD (PORCINE) 5000 UNITS/ML VIAL (J1644 PER 1000UNITS) SC SCH (04:50)
[2019-11-12 07:08] LABS: HEMATOCRIT 31.6 % (36.0-47.0); HEMOGLOBIN 10.4 g/dl (12.0-15.5); MEAN CORPUSCULAR HEMOGLOBIN 30.1 pg (27.0-33.0); MEAN CORPUSCULAR HGB CONC 32.9 g/dl (32.0-36.5); MEAN CORPUSCULAR VOLUME 91.3 fl (80.0-96.0); PLATELET COUNT, AUTOMATED 177 10^3/uL (150-450); RED BLOOD COUNT 3.46 10^6/uL (4.00-5.40); WHITE BLOOD COUNT 7.9 10^3/uL (4.0-10.0)
[2019-11-12 07:39] LABS: ALBUMIN 2.8 GM/DL (3.2-5.2); ALT/SGPT 52 U/L (12-78); BILIRUBIN,TOTAL 0.3 MG/DL (0.2-1.0); BLOOD UREA NITROGEN 6 MG/DL (7-18); CALCIUM LEVEL 8.1 MG/DL (8.5-10.1); CARBON DIOXIDE LEVEL 23 MEQ/L (21-32); CHLORIDE LEVEL 113 MEQ/L (98-107); GLOMERULAR FILTRATION RATE > 60.0 (>60); GLUCOSE, FASTING 78 MG/DL (70-100); SODIUM LEVEL 143 MEQ/L (136-145); TOTAL PROTEIN 6.2 GM/DL (6.4-8.2)
[2019-11-12] MEDS: cefTRIAXone SOD 1 GM in D5W MINI-BAG PLUS 50 ML IV SCH (09:00)
[2019-11-12] MEDS ORDERED: CIPR500T3 PO (11:48)
[2019-11-12] MEDS ORDERED: HYDR-4514 PO (11:48)
[2019-11-12 14:07] LABS: ANTINUCLEAR ANTIBODIES DIRECT Negative (Negative)
--- NOTE | 2019-11-12 19:43 | DS.PDOC ---
Discharge Summary General Date of Admission Nov 10, 2019 at 01:53 Date of Discharge November 12, 2019 Discharge Summary PROCEDURES PERFORMED DURING STAY: [None]. ADMITTING DIAGNOSES: 1. [Acute pyelonephritis]. DISCHARGE DIAGNOSES: 1. [Pyelonephritis resolving, GERD]. COMPLICATIONS/CHIEF COMPLAINT: Acute Focal Nephritis;Bilat Flank Pain;Fever;. HISTORY OF PRESENT ILLNESS/HOSPITAL COURSE: [29 year old female presented with fever, flank pain and leukocytosis. CT scan showed inflamatory changes to kidn ey, although urinalysis was unremarkable. Patient was admitted and treated with IV antibiotics for presumed pyelonephritis. Over the course of her hospital stay she defervesced, she regained an appetite and had decreasing flank pain. Cultures remained negative and her leukocytosis resolved. She was transitioned to oral antibiotics and oral pain meds and was stable for discharge to home.]. DISCHARGE MEDICATIONS: Please see below. ALLERGIES: Please see below. PHYSICAL EXAMINATION ON DISCHARGE: VITAL SIGNS: Please see below. GENERAL: [Awake, alert and fully ambulatory] HEENT: Oral mucosa is moist, she does not have any adenopathy or thyromegaly. Cardiovascular: Regular rate and rhythm with a normal S1 and S2. No appreciable murmur. Abdomen: Soft, mild central obesity, relative to her overall body habitus, patient also has significant bilateral flank pain to palpation and percussion greater on the left than on the right Extremities: Patient does not exhibit any peripheral edema or lesions, pedal pulses are palpable LABORATORY DATA: Please see below. IMAGING: ABD/PELVIC CT [IMPRESSION: Parenchymal hypodensity (area of diminished perfusion) medially at the left upper renal pole. Perinephric stranding, adjacent to the left upper renal pole. No hydronephrosis. Most likely acute focal nephritis (acute lobar nephronia), at the left upper renal pole. No obstructing urinary tract stones. Clinical and urinalysis correlation are suggested. Previous cholecystectomy. Splenomegaly. No acute bowel pathology. Electronically signed by: Nancy Aj On 11/09/2019 23:22:09 PM] PROGNOSIS: ACTIVITY: [As tolerated]. DIET: [As tolerated, maintain adequate fluid intake] DISCHARGE PLAN: [Patient was otherwise stable for discharge to home. She is to follow up with her PCP within 1 - 2 weeks. Discussed hygiene techniques to decrease risk.] DISPOSITION: Home, Self-Care. DISCHARGE INSTRUCTIONS: 1. . ITEMS TO FOLLOWUP ON ON OUTPATIENT: 1. . DISCHARGE CONDITION: [Stable]. TIME SPENT ON DISCHARGE: [40] minutes. Vital Signs/I&Os Vital Signs Date Time Temp Pulse Resp B/P (MAP) Pulse Ox O2 Delivery O2 Flow Rate FiO2 11/12/19 11:15 16 11/12/19 04:27 98.7 81 106/54 (71) 97 Room Air I&O- Last 24 Hours up to 6 AM 11/12/19 06:00 Intake Total 1680 ml Output Total 800 ml Balance 880 ml Laboratory Data Labs 24H Laboratory Tests 2 11/12/19 06:52: Nucleated Red Blood Cells % (auto) 0.0, Anion Gap 7L, Glomerular Filtration Rate > 60.0, Calcium Level 8.1L, Total Bilirubin 0.3, Aspartate Amino Transf (AST/SGOT) 15, Alanine Aminotransferase (ALT/SGPT) 52, Alkaline Phosphatase 85, Total Protein 6.2L, Albumin 2.8L, Albumin/Globulin Ratio 0.82L CBC/BMP Laboratory Tests 11/12/19 06:52 Microbiology Microbiology 11/10/19 Blood Culture - Preliminary, Resulted No Growth after 48 hours. All Specime... 11/10/19 Blood Culture - Preliminary, Resulted No Growth after 48 hours. All Specime... 11/09/19 Respiratory Virus Panel (PCR) ([facility]) - Final, Complete Discharge Medications Scheduled Ciprofloxacin HCl (Ciprofloxacin HCl) 500 Mg Tablet, 500 MG PO BID Scheduled PRN Albuterol Sulfate (Proair Hfa) 8.5 Gm Hfa.aer.ad, 2 PUFF INH QID PRN for SHORTNESS OF BREATH, (Reported) Hydrocodone/Acetaminophen (Hydrocodone-Acetamin 7.5-325) 1 Each Tablet, 1 TAB PO Q6HP PRN for MILD PAIN (PS 1-4) Ibuprofen (Ibuprofen) 200 Mg Tablet, 800 MG PO TID PRN for PAIN, (Reported) Allergies Coded Allergies: Penicillins (Verified Allergy, Intermediate, RASH/HIVES, 11/09/19) VA CACERES MD Nov 12, 2019 19:43
== END 2019-11-12 12:25 | disposition home or self-care (01) | DRG 463 ==
LOC: M ED 19:43 → M ED INP 11-10 01:53 → ENRESERV 11-10 03:41 → M MS4PR 11-10 04:45
PROVIDERS: ADMIT Internal Medicine; ATTEND Internal Medicine
DX: N10 Acute pyelonephritis (principal); E66.9 Obesity, unspecified; K21.9 Gastro-esophageal reflux disease without esophagitis; D72.829 Elevated white blood cell count, unspecified; Z88.0 Allergy status to penicillin; N12 Tubulo-interstitial nephritis, not specified as acute or chronic

== ENCOUNTER → 2019-11-09 | Outpatient (REF) | payer OTHER ==
[~2019-11-09] MED LIST changes: +BACT800T5 PO; +CIPR-249 PO; +CIPR500T3 PO; +COMBAER6 INH; +HYDR-4514 PO; +IBUP-1730 PO; +IBUP200C25 PO; +OXYC1TAB23 PO; +PROAAER10 INH
== END ==
LOC: M LAB REF 13:05
PROVIDERS: ATTEND Nurse Practitioner Family
DX: R10.30 Lower abdominal pain, unspecified (principal)

== ENCOUNTER → 2019-11-09 | Outpatient (CLI) | payer OTHER ==
[~2019-11-09] MED LIST changes: -CIPR500T3 PO; -HYDR-4514 PO
[2019-11-09 19:41] LABS: BASO # 0.1 10^3/uL (0.0-0.2); BASO % 0.3 % (0.0-1.0); EOS # 0.1 10^3/uL (0.0-0.5); EOS % 0.3 % (0.0-3.0); HEMATOCRIT 43.4 % (36.0-47.0); LYMPH # 2.4 10^3/uL (1.5-5.0); MEAN CORPUSCULAR HEMOGLOBIN 29.6 pg (27.0-33.0); MEAN CORPUSCULAR HGB CONC 32.3 g/dl (32.0-36.5); MEAN CORPUSCULAR VOLUME 91.8 fl (80.0-96.0); MONO # 1.7 10^3/uL (0.0-0.8); MONO % 8.7 % (0.0-5.0); NEUTROPHILS # 15.7 10^3/uL (1.5-8.5); NEUTROPHILS % 78.3 % (36.0-66.0); PLATELET COUNT, AUTOMATED 245 10^3/uL (150-450); RED BLOOD COUNT 4.73 10^6/uL (4.00-5.40); WHITE BLOOD COUNT 20.1 10^3/uL (4.0-10.0)
--- NOTE | 2019-11-09 20:06 | REP ---
SUPINE ABDOMEN: 11/09/2019. Clinical history: Lower abdominal pain, unspecified. Fever. Comparison: CT 10/11/2017. Findings: There are two Essure tubal implants in the pelvis as on previous CT. No visible mass. There are right upper quadrant clips from prior cholecystectomy. Stool and gas pattern unremarkable. Small bowel loops mostly fluid-filled which may reflect gastroenteritis or ileus. Bones are intact. No mass or abnormal calcification over the renal fossae, expected course of the ureters or within the pelvis overlying the bladder. Impression: 1. Nonspecific gas pattern with tubal implants bilaterally and with no stone, mass, dilated bowel loops or other acute finding. Electronically Signed by Ean Napier MD 11/10/2019 08:05 A
[2019-11-09 20:10] LABS: BLOOD UREA NITROGEN 11 MG/DL (7-18); CALCIUM LEVEL 8.9 MG/DL (8.5-10.1); CARBON DIOXIDE LEVEL 26 MEQ/L (21-32); CHLORIDE LEVEL 108 MEQ/L (98-107); CREATININE FOR GFR 0.73 MG/DL (0.55-1.30); GLOMERULAR FILTRATION RATE > 60.0 (>60); GLUCOSE, FASTING 89 MG/DL (70-100); POTASSIUM SERUM 4.1 MEQ/L (3.5-5.1); SODIUM LEVEL 140 MEQ/L (136-145)
== END ==
LOC: M ADAMS 18:23
PROVIDERS: ATTEND Nurse Practitioner Family
DX: R10.30 Lower abdominal pain, unspecified (principal); R50.9 Fever, unspecified

== ENCOUNTER → 2021-01-17 | Outpatient (REF) | payer OTHER ==
[~2021-01-17] MED LIST changes: +CIPR500T3 PO; +HYDR-4514 PO; +IBUP-1730 PO; +PROAAER10 INH
[2021-01-17 13:31] LABS: BASO # 0.1 10^3/uL (0.0-0.2); BASO % 0.6 % (0.0-1.0); EOS # 0.2 10^3/uL (0.0-0.5); HEMATOCRIT 42.3 % (36.0-47.0); HEMOGLOBIN 13.5 g/dl (12.0-15.5); LYMPH # 3.1 10^3/uL (1.5-5.0); LYMPH % 35.3 % (24.0-44.0); MEAN CORPUSCULAR HEMOGLOBIN 28.9 pg (27.0-33.0); MEAN CORPUSCULAR HGB CONC 31.9 g/dl (32.0-36.5); MEAN CORPUSCULAR VOLUME 90.6 fl (80.0-96.0); MONO # 0.6 10^3/uL (0.0-0.8); MONO % 7.2 % (2.0-8.0); NEUTROPHILS # 4.7 10^3/uL (1.5-8.5); NEUTROPHILS % 54.3 % (36.0-66.0); PLATELET COUNT, AUTOMATED 291 10^3/uL (150-450); RED BLOOD COUNT 4.67 10^6/uL (4.00-5.40); WHITE BLOOD COUNT 8.6 10^3/uL (4.0-10.0)
[2021-01-17 14:03] LABS: ALT/SGPT 53 U/L (12-78); BILIRUBIN,TOTAL 0.3 MG/DL (0.2-1.0); BLOOD UREA NITROGEN 12 MG/DL (7-18); CALCIUM LEVEL 9.2 MG/DL (8.5-10.1); CARBON DIOXIDE LEVEL 26 MEQ/L (21-32); CHLORIDE LEVEL 112 MEQ/L (98-107); CHOLESTEROL LEVEL 156 MG/DL (<200); CREATININE FOR GFR 0.58 MG/DL (0.55-1.30); FREE T4 0.94 NG/DL (0.76-1.46); GLOMERULAR FILTRATION RATE > 60.0 (>60); GLUCOSE, FASTING 85 MG/DL (70-100); HDL CHOLESTEROL 40 MG/DL (>40); LDL CHOLESTEROL 98 MG/DL (<100); NON-HDL-C 116 MG/DL; POTASSIUM SERUM 4.6 MEQ/L (3.5-5.1); SODIUM LEVEL 142 MEQ/L (136-145); TOTAL PROTEIN 7.5 GM/DL (6.4-8.2); TRIGLYCERIDES LEVEL 92 MG/DL (<150)
[2021-01-17 15:43] LABS: TOTAL 25(OH) VITAMIN D 23.6 NG/ML (30.0-100.0)
== END ==
LOC: M LAB REF 13:11
PROVIDERS: ATTEND Pediatrics
DX: F41.8 Other specified anxiety disorders (principal); E55.9 Vitamin D deficiency, unspecified; Z13.220 Encounter for screening for lipoid disorders

== ENCOUNTER → 2023-10-29 | Outpatient (REF) | payer OTHER | LOC: M SFHCADAM 09:22 | PROVIDERS: ATTEND Family Medicine | DX: Z71.1 Person with feared health complaint in whom no diagnosis is made (principal) ==

== ENCOUNTER 2024-12-06 12:37 | Emergency (ER) | payer OTHER ==
[~2024-12-06] VITALS: Ht 162.6 cm; Wt 72.4 kg
[2024-12-06 12:48] VITALS: BP 132/77; TEMP 101.1; O2SAT 100
[2024-12-06 13:39] LABS: KETONE, URINE AUTO RFX NEGATIVE (NEGATIVE); MUCUS, URINE RFX SMALL (NEGATIVE); RBC, URINE AUTO RFX 2 /HPF (0-3); SQUAM EPITHELIAL CELL UR AURFX 1 /HPF (0-6)
[2024-12-06 13:40] LABS: LEUKOCYTE ESTERASE UR AUTO RFX 3+ (NEGATIVE); NITRITE, URINE AUTO RFX POSITIVE (NEGATIVE); WBC, URINE AUTO RFX TNTC /HPF (0-3)
== END 2024-12-06 14:10 | disposition left against medical advice (07) ==
LOC: M ED 12:37
DX: Z53.21 Procedure and treatment not carried out due to patient leaving prior to being seen by health care provider (principal)